=== PATIENT | female | born 1980 | race Caucasian/White ===

== ENCOUNTER 2023-10-24 09:00 | Emergency (ER) | payer OTHER, SELFPAY ==
[2023-10-24 09:02] VITALS: BP 76/52; PULSE 95; RESP 18; TEMP 37.2; O2SAT 95; BMI 27.5
[2023-10-24 09:03] VITALS: BP 80/56; PULSE 93; RESP 18; TEMP 36.9; O2SAT 95
--- NOTE | 2023-10-24 09:15 | EKG12_ITS ---
Test Reason : FEVER Blood Pressure : / mmHG Vent. Rate : 087 BPM Atrial Rate : 087 BPM P-R Int : 144 ms QRS Dur : 086 ms QT Int : 346 ms P-R-T Axes : 036 026 -12 degrees QTc Int : 416 ms Normal sinus rhythm Normal ECG Confirmed by CAIT OSEI MD ([id number]), scientific publications editor WINTER MARROQUIN ([id number]) on 10/26/2023 6:51:58 AM Referred By: Confirmed By:CAIT OSEI MD
--- NOTE | 2023-10-24 09:20 | NURSING ---
NO OLD EKGS
--- NOTE | 2023-10-24 09:23 | EX.ED.DYSGE1 ---
HPI History of Present Illness Chief Complaint: Fever Narrative Narrative: 43-year-old female presenting with fevers, chills, body aches since Thursday of this week. Patient states her fever has been about 100.1 Fahrenheit. She has been taking Tylenol and ibuprofen. She states he has not wanted to eat much but she does not feel nauseous. She is only drinking enough water to take her medications. She is states she is making urine and having bowel movements however. She denies cough, shortness of breath, abdominal pain, diarrhea, lightheadedness, urinary complaints, vaginal complaints. She states that now her hands and feet feel sore and she feels tingly all over. Nobody else in her household is sick. Patient was seen by urgent care yesterday at [facility] and she had mentioned to them that she was working in the [place] on Thursday. The nurse practitioner gave her doxycycline to cover for any kind of mosquito, tick, spider bite that she could have sustained in the [place] which she does not recall having. Patient was told to see how it goes over the weekend but decided to come to the emergency room instead. She states the only medication she takes is blood pressure medicine. [facility] Medical History (Updated 10/24/23 @ 09:52 by Veda Camarillo) Hypertension Allergy/AdvReac Type Severity Reaction Status Date / Time No Known Allergies Allergy Verified 10/24/23 09:00 Social History Smoking Status: Never smoker [facility] ED Constitutional Constitutional ED: Reports chills and fever(s); Denies sweats Eyes Eyes: Denies blurry vision or change in vision ENT ENT ED: Denies ear pain or sore throat Cardiovascular Cardiovascular: Denies chest pain, palpitations or racing heartbeat Respiratory/Chest Respiratory/Chest: Denies cough, dyspnea or sputum Gastrointestinal Gastrointestinal: Reports other Details: Decreased p.o. intake ; Denies abdominal pain, constipation, diarrhea, nausea or vomiting Genitourinary Genitourinary ED: Denies dysuria, hematuria or urinary frequency Musculoskeletal Musculoskeletal: Reports myalgias; Denies arthralgias or neck pain Integumentary Denies abscess, Abrasions or rash Neurologic Neurologic: Denies headache(s), paresthesias or weakness Psychiatric Psychiatric: Denies anxiety, depression, suicidal ideation or suicidal thoughts Endocrine Endocrinology: Denies polydipsia or polyuria EXAM Physical Exam Const Vital Signs: 10/24/23 09:02 10/24/23 09:03 10/24/23 09:52 Temperature 98.9 F 98.4 F Temperature Source Temporal Temporal Pulse Rate 95 93 Respiratory Rate 18 18 Respiratory Pattern Normal Blood Pressure 76/52 L 80/56 L Blood Pressure Mean 60 64 Pulse Ox 95 95 Oxygen Delivery Method Room Air Room Air 10/24/23 10:00 10/24/23 11:00 10/24/23 12:00 Temperature 99.1 F Temperature Source Pulse Rate 90 85 94 Respiratory Rate 12 14 11 L Respiratory Pattern Blood Pressure 104/67 104/69 107/78 Blood Pressure Mean 79 80 87 Pulse Ox 100 100 99 Oxygen Delivery Method Positive well nourished General Appearance ED: NAD HEENT Reports moist mucous membranes Eyes PERRL and EOMs intact bilaterally Chest Wall inspection of chest normal and palpation of chest normal Resp clear to auscultation bilaterally Cardio regular rate and regular rhythm GI normal to inspection, nondistended, normoactive bowel sounds, non-tender and non-distended Back/Spine no CVA tenderness Extremity normal to inspection General Extremety ED: Yes edema General Extremity: edema Neuro oriented x3 and CN's II-XII intact bilaterally Sensorium / Orientation: alert Motor Exam: strength 5/5 throughout Psych mental status grossly normal Skin no rashes or lesions noted and no wounds MDM MDM MDM Narrative Medical decision making narrative: 43-year-old female with fevers for 1 week. Patient admits to chills and bodyaches. She arrived today with a blood pressure that was 76/52 although I am not sure it was accurate. Patient denies feeling lightheaded or dizzy. She has been ambulate without any difficulties. She is on 40 mg of telmisartan daily which she did not take this morning because she did not feel well. Patient states she was started on this because her blood pressures were elevated at home. She was initially seen in office but they told her to keep a blood pressure diary and she was doing this at home. She states that she would stop working and take her blood pressure and did not sit and rest for a few minutes for taken the blood pressure. The only blood pressure she can recall being elevated was a 130/100. I suspect that her blood pressure readings were not accurate at home. The patient's last fever was yesterday. Differential includes COVID, influenza, RSV, other viral etiology, pneumonia, UTI, dehydration, anemia, electrolyte abnormalities. Because the patient was hypotensive sepsis workup was pursued and patient was pancultured. CBC shows normal white blood cell count of 5.5. Hemoglobin 12.2. Are low at 87 however I do not have any comparison lab work. Renal function and electrolytes within normal limits. LFTs are normal. High-sensitivity troponin less than 3. EKG sinus rhythm at 87 bpm on my interpretation. No evidence of ischemia. Chest x-ray on my interpretation shows no acute cardiopulmonary process. The radiologist interprets this and agrees. Urinalysis negative for infection. Discussed with the patient that all of her blood work appears to be normal except for platelets are low. We discussed keeping good blood pressure diary at home and I recommended that she sit and relax for 15 minutes before she checks her blood pressures. She should do this in the morning and evening at the very least. I recommended her with holding her blood pressure medicine for now because her pressures are lower, and it is unclear if her blood pressures that she reported were accurate. I believe she likely had something viral this week and that is why she had fevers but her lab work is unremarkable and she feels better. At this point I feel she is stable for discharge. Return precautions were discussed. Impression: 1. Fever of unknown origin 2. Hypotension?resolved Lab Data Attestation: I reviewed the patient's lab results. Labs: Laboratory Results - last 24 hr 10/24/23 10/24/23 09:40 11:15 WBC 5.5 RBC 3.96 L Hgb 12.2 Hct 35.4 L MCV 89.4 MCH 30.8 MCHC 34.5 RDW Std Deviation 41.1 RDW Coeff of Misty 12.5 Plt Count 87 L MPV 11.4 Immature Gran % (Auto) 0.500 Neut % (Auto) 74.3 H Lymph % (Auto) 15.8 L [place] % (Auto) 4.5 Eos % (Auto) 4.5 Baso % (Auto) 0.4 Absolute Neuts (auto) 4.1 Absolute Lymphs (auto) 0.87 Nucleated RBC % 0 Differential Comment SCANNED Reactive Lymphocytes 1+ Platelet Estimate MOD DEC PT 13.9 INR 1.1 Sodium 135 L Potassium 3.5 Chloride 104 Carbon Dioxide 25.0 Anion Gap 6 BUN 9 Creatinine 0.74 Estim Creat Clear Calc 86.92 Est GFR (MDRD) Af Amer 109 Est GFR (MDRD) Non-Af 90 BUN/Creatinine Ratio 12.2 Glucose 94 Lactic Acid 1.3 Calcium 8.2 L Total Bilirubin 0.40 AST 24 ALT 24 Alkaline Phosphatase 49 Troponin I High Sens < 3 L Total Protein 6.7 Albumin 3.2 Globulin 3.5 Albumin/Globulin Ratio 0.9 Lipase 13 Urine Color Yellow Urine Clarity Clear Urine pH 6.0 Ur Specific [place] 1.010 Urine Protein 15 H Urine Glucose (UA) Normal Urine Ketones 15 H Urine Occult Blood 250 H Urine Nitrite Negative Urine Bilirubin Negative Urine Urobilinogen Normal Ur Leukocyte Esterase 25 H Urine RBC 0 SEEN Urine WBC 0-5 SEEN Ur Squamous Epith Cells 5-10 SEEN Urine Bacteria RARE Urine Mucus 0 SEEN Radiography Diagnostic Testing: Clinical Impression(s) from Imaging Studies Chest X-Ray 10/24/23 09:55 IMPRESSION: No acute cardiopulmonary disease. Electronically Signed: Demond Flynn MD at 10:14 EDT , Discharge Plan Triage Chief Complaint: Fever ED Provider: Saran Reyna Dx/Rx/DC Orders Instructions: Thrombocytopenia, ED FUO Adult, ED Low Blood Pressure, All Causes Primary Care Provider: Mark Foster Referrals: Mark Foster DO [Primary Care Provider] - Print Language: Hebrew Disposition Disposition: Home, Self Care Discharge Date/Time: 10/24/23 12:34
[2023-10-24] MEDS: 0.9% Normal Saline (1000mL) 1,000 ML 999 ML IV ×2 (09:50→11:11)
--- NOTE | 2023-10-24 09:55 | RAD_ITS ---
EXAM: XR CHEST, 1 VIEW CLINICAL INDICATION: fever TECHNIQUE: Frontal view of the chest. COMPARISON: No relevant prior studies available. FINDINGS: LUNGS AND PLEURAL SPACES: Normal. No consolidation or edema. No pneumothorax. No effusion. HEART: Normal heart size. MEDIASTINUM: No mediastinal or hilar mass. BONES/JOINTS: No acute abnormality. RAD/Chest 1 View (Portable) IMPRESSION: No acute cardiopulmonary disease. Electronically Signed: Demond Flynn MD at 10:14 EDT ,
[2023-10-24 09:57] LABS: Absolute Lymphocyte Count 0.87 X10^3/uL (0.83-4.51); Absolute Neutrophil Count 4.1 X10^3/uL (2.0-7.7); Basophil# 0.02 X10^3/uL; Basophil% 0.4 % (0-1); Eosinophil# 0.25 X10^3/uL; Eosinophils% 4.5 % (0-5); Hematocrit 35.4 % (37-47); Hemoglobin 12.2 g/dL (12.0-15.0); Lymphocyte # 0.87 X10^3/ul (0.83-4.51); Lymphocyte % 15.8 % (19-41); Mean Corp Hgb Conc 34.5 g/dL (32-36); Mean Corpuscular Hgb 30.8 pg (27.0-32.0); Mean Corpuscular Volume 89.4 fL (81-99); Mean Platelet Vol. 11.4 fl (6.2-12.0); Monocyte# 0.25 X10^3/uL; Monocyte% 4.5 % (0-10); NRBC Flagged by Analyzer 0 % (0-5); Neutrophil # 4.09 X10^3/uL (2.7-7.7); Neutrophil % 74.3 % (47-70); POSITIVE COUNT YES; POSITIVE MORPHOLOGY YES; Platelet Count 87 K/mm3 (150-450); RBC Distribution Width CV 12.5 % (11.6-14.6); RBC Distribution Width SD 41.1 fl (35.1-43.9); Red Blood Count 3.96 M/mm3 (4.2-5.4); White Blood Count 5.5 K/mm3 (4.4-11.0)
[2023-10-24 10:00] VITALS: BP 104/67; PULSE 90; RESP 12; O2SAT 100
[2023-10-24 10:10] LABS: ALB/GLOB Ratio 0.9 RATIO (0.9-2.4); AST(SGOT) 24 U/L (15-37); Alanine Aminotransfer ALT/SGPT 24 U/L (13-56); Albumin, Serum 3.2 g/dL (3.2-5.0); Alkaline Phosphatase 49 U/L (45-117); Anion Gap 6 (5-15); BUN 9 mg/dL (7-18); BUN/Creat Ratio 12.2 RATIO (10-20); Calcium,Total 8.2 mg/dL (8.5-10.1); Chloride 104 mmol/L (98-107); Creatinine, Serum 0.74 mg/dL (0.55-1.02); EST Glomerular Filtration Rate 90 mL/min (>60); Est Glom Filt Rate - Afr Amer 109 mL/min (>60); Estimated Creatinine Clearance 86.92 ml/min; Globulin 3.5 g/dL (2.2-4.2); Glucose 94 mg/dL (74-106); Lipase 13 U/L (13-75); Potassium 3.5 mmol/L (3.5-5.1); Protein, Total 6.7 g/dL (6.4-8.2); Sodium Level 135 mmol/L (136-145); Troponin-I HS < 3 pg/mL (3.0-54.0)
[2023-10-24 10:14] LABS: Lactic Acid 1.3 mmol/L (0.4-1.9)
[2023-10-24 10:16] LABS: Differential Indicated SCAN CRITERIA MET
[2023-10-24 10:32] LABS: International Normalized Ratio 1.1; Prothrombin Time (Protime)PT. 13.9 SECONDS (11.7-14.9)
[2023-10-24 11:00] VITALS: BP 104/69; PULSE 85; RESP 14; O2SAT 100
[2023-10-24 11:18] LABS: Mucous, Urine 0 SEEN /hpf (<or=2+); Red Blood Cells-Urine 0 SEEN /hpf (0-5)
[2023-10-24 11:19] LABS: Differential Comment SCANNED; Platelet Estimate MOD DEC (ADEQ); Reactive Lymphocyte 1+
[2023-10-24 11:25] LABS: Color, Urine Yellow (Yellow); Glucose, Dipstick Normal (Normal); Ketone-Dipstick 15 mg/dl (Negative); Leukocyte Esterase-Dipstick 25 /ul (Negative); Nitrite-Dipstick Negative (Negative); Occult Blood-Urine 250 /ul (Negative); Protein-Dipstick 15 mg/dl (Negative); Urine Bilirubin Dipstick Negative (Negative); Urine Clarity Clear (Clear); Urine Urobilinogen Normal (Normal)
[2023-10-24 11:38] LABS: Bacteria RARE /hpf (None Seen); Squamous Epithelial Cells - UA 5-10 SEEN /hpf (5-10); White Blood Cells 0-5 SEEN /hpf (0-5)
[2023-10-24 12:00] VITALS: BP 107/78; PULSE 94; RESP 11; TEMP 37.3; O2SAT 99
== END 2023-10-24 12:34 | disposition home or self-care (01) ==
PROVIDERS: Emergency Provider Student in an Organized Health Care Education/Training Program; PCP Family Medicine; Visit Provider Student in an Organized Health Care Education/Training Program
DX: R50.9 Fever, unspecified (principal); I10 Essential (primary) hypertension; I95.9 Hypotension, unspecified
CPT/HCPCS: 71045; 80053; 81001; 83605; 83690; 84484; 85025; 85610; 87040; 93005; 96360; 96361; 99283; A4216